=== PATIENT | female | born 1990 | race Caucasian/White ===

== ENCOUNTER 2016-09-25 16:07 | Emergency (ER) | payer MEDICAID, MEDICARE ==
[~2016-09-25] VITALS: Ht 170.2 cm; Wt 63.0 kg
[2016-09-25] MEDS ORDERED: PNV1TABL76 PO (16:17)
[2016-09-25] MEDS ORDERED: SODIUM CHLORIDE 0.9% 1,000 ML IV ONE (17:19)
[2016-09-25 17:47] LABS: BASOPHILS % 0.4 % (0.0-2.0); CHLORIDE 105 mEq/L (98-107); EOSINOPHILS % 2.5 % (0.0-5.0); HEMATOCRIT. 28.6 % (36.0-48.0); HEMOGLOBIN. 9.9 g/dL (12.0-16.0); INDEX HEMOLYSI 1 (1-3); INDEX ICTERIC 1 (1-4); INDEX LIPEMIC 1 (1-3); LYMPHOCYTES % 13.2 % (20.0-50.0); MEAN CORPUSCULAR HGB CONC 34.7 g/dL (31.0-37.0); MEAN CORPUSCULAR VOLUME 86.5 fL (81.0-99.0); MEAN PLATELET VOLUME 8.8 fl (7.4-10.4); NEUTROPHILS % 76.9 % (40.0-76.0); PLATELET 190 x1000/uL (130-400); RED CELL DISTRIBUTION WIDTH 12.7 % (11.6-14.6)
[2016-09-25 17:51] LABS: ANION GAP 12; CALCIUM 8.3 mg/dL (8.5-10.1); CARBON DIOXIDE 24 mEq/L (21-32); UREA NITROGEN BLOOD 8 mg/dL (7-21)
[2016-09-25 17:58] LABS: eGFR > 60 mL/min (>60)
[2016-09-25 18:12] LABS: B-HCG QUANTITATIVE 21378 mIU/mL (<3)
[2016-09-25 18:36] LABS: CLARITY URINE CLEAR (CLEAR); COLOR URINE YELLOW (YELLOW); GLUCOSE URINE NEGATIVE (NEGATIVE); KETONES URINE NEGATIVE (NEGATIVE); LEUKOCYTE ESTERASE URINE 1+ (NEGATIVE); NITRITE URINE NEGATIVE (NEGATIVE); OCCULT BLOOD URINE 3+ (NEGATIVE); PROTEIN URINE NEGATIVE (NEGATIVE); SPECIFIC GRAVITY URINE 1.015 (1.005-1.030); UROBILINOGEN URINE 0.2 E.U./dL (0.2-1.0)
[2016-09-25 18:57] LABS: BACTERIA URINE TRACE; RBC URINE 0-2 /hpf (0-2); SQUAMOUS EPITHELIAL CELL URINE 1+ /lpf (RARE/1+)
[2016-09-25] MEDS ORDERED: ACETAMINOPHEN 325MG TABLET PO ONE ×2 (20:30)
[2016-09-25 21:10] VITALS: BP 92/47
== END 2016-09-25 21:19 | disposition home or self-care (01) ==
LOC: ER 18:44
DX: O20.0 Threatened abortion (principal); O23.42 Unspecified infection of urinary tract in pregnancy, second trimester; Z3A.17 17 weeks gestation of pregnancy
CPT/HCPCS: 36415; 76805; 80048; 81001; 81025; 84702; 85025; 86850; 86900; 86901; 87086; 96360; 99285; J7030; Z7610

== ENCOUNTER 2017-01-03 19:04 | Observation (INO) | payer MEDICARE ==
[~2017-01-03] VITALS: Ht 170.2 cm; Wt 71.7 kg
[~2017-01-03 19:04] MED LIST: PNV1TABL76 PO
[2017-01-03] MEDS ORDERED: LACTATED RINGERS 1,000 ML IV SCH (20:45)
[2017-01-03 21:12] LABS: BASOPHILS % 0.3 % (0.0-2.0); EOSINOPHILS % 1.4 % (0.0-5.0); HEMATOCRIT. 28.5 % (36.0-48.0); HEMOGLOBIN. 9.8 g/dL (12.0-16.0); LYMPHOCYTES % 18.7 % (20.0-50.0); MEAN CORPUSCULAR HEMOGLOBIN 29.1 pg (28.0-32.0); MEAN CORPUSCULAR VOLUME 84.5 fL (81.0-99.0); MEAN PLATELET VOLUME 8.3 fl (7.4-10.4); MONOCYTES % 9.2 % (2.0-8.0); NEUTROPHILS % 70.4 % (40.0-76.0); PLATELET 182 x1000/uL (130-400); RED BLOOD CELL COUNT 3.38 mill/uL (4.2-5.4); RED CELL DISTRIBUTION WIDTH 13.7 % (11.6-14.6)
[2017-01-03] MEDS ORDERED: ACETAMINOPHEN 500MG TABLET PO NR (23:45)
== END 2017-01-04 01:30 | disposition home or self-care (01) ==
LOC: L&D 19:04
PROVIDERS: ADMIT Obstetrics & Gynecology; ATTEND Obstetrics & Gynecology
DX: O26.893 Other specified pregnancy related conditions, third trimester (principal); R10.9 Unspecified abdominal pain; Z3A.31 31 weeks gestation of pregnancy
CPT/HCPCS: 36415; 76805; 76818; 85025; 85610; 85730; 96360; 96361; G0378; J7120